=== PATIENT | male | born 1960 | race Caucasian/White ===

== ENCOUNTER 2024-11-06 07:42 | Emergency (ER) | payer MEDICARE ==
[2024-11-06 09:53] LABS: APPEARANCE,URINE CLEAR (CLEAR); BILIRUBIN,URINE NEGATIVE (NEGATIVE); COLOR,URINE YELLOW; GLUCOSE,URINE NEGATIVE (NEGATIVE); KETONES,URINE NEGATIVE (NEGATIVE); LEUKOCYTE ESTERASE,URINE NEGATIVE (NEGATIVE); NITRITE,URINE NEGATIVE (NEGATIVE); OCCULT BLOOD,URINE SMALL (NEGATIVE); PROTEIN,URINE NEGATIVE (NEGATIVE); UROBILINOGEN,URINE 0.2 E.U./dL (0.2-1.0)
[2024-11-06 09:58] LABS: BACTERIA,URINE RARE /HPF; RBC,URINE 20-30 /HPF; WBC,URINE 0-5 /HPF
[2024-11-06 10:27] VITALS: BP 145/76; PULSE 89
== END 2024-11-06 10:25 | disposition home or self-care (01) ==
LOC: LB.ED 07:42
DX: N40.1 Benign prostatic hyperplasia with lower urinary tract symptoms (principal); R31.29 Other microscopic hematuria; I10 Essential (primary) hypertension; E78.00 Pure hypercholesterolemia, unspecified; Z79.899 Other long term (current) drug therapy
CPT/HCPCS: 51701; 51798; 81001; 99283-25; C1758

== ENCOUNTER 2024-11-06 19:48 | Emergency (ER) | payer MEDICARE ==
[2024-11-06 21:10] LABS: BASOPHILS ABSOLUTE AUTO 0.02 K/uL (0.02-0.10); BASOPHILS PERCENT AUTO 0.3 % (0.0-0.5); EOSINOPHILS ABSOLUTE AUTO 0.05 K/uL (0.04-0.40); EOSINOPHILS PERCENT AUTO 0.6 % (1.0-5.0); HEMATOCRIT 39.2 % (40.0-54.0); HEMOGLOBIN 13.4 g/dL (13.0-18.0); LYMPHOCYTES ABSOLUTE AUTO 0.94 K/uL (1.50-4.00); LYMPHOCYTES PERCENT AUTO 11.8 % (20.0-40.0); MEAN CORPUSCULAR HEMOGLOBIN 30.5 pg (27.0-32.0); MEAN CORPUSCULAR HGB CONC 34.2 g/dL (31.0-35.0); MEAN CORPUSCULAR VOLUME 89 fL (76-96); MEAN PLATELET VOLUME 8.9 fL (6.0-10.0); MONOCYTES ABSOLUTE AUTO 0.68 K/uL (0.20-0.80); MONOCYTES PERCENT AUTO 8.5 % (3.0-10.0); NEUTROPHILS ABSOLUTE AUTO 6.27 K/uL (2.00-7.50); NEUTROPHILS PERCENT AUTO 78.8 % (45.0-70.0); PLATELET COUNT,PLT 196 K/uL (150-400); RED BLOOD CELL COUNT 4.39 M/uL (4.50-6.50); RED CELL DISTRIBUTION WIDTH 12.9 % (11.0-16.0)
[2024-11-06 21:15] LABS: APPEARANCE,URINE SLIGHTLY CLOUDY (CLEAR); BILIRUBIN,URINE NEGATIVE (NEGATIVE); COLOR,URINE YELLOW; GLUCOSE,URINE NEGATIVE (NEGATIVE); KETONES,URINE TRACE mg/dL (NEGATIVE); LEUKOCYTE ESTERASE,URINE NEGATIVE (NEGATIVE); NITRITE,URINE NEGATIVE (NEGATIVE); OCCULT BLOOD,URINE LARGE (NEGATIVE); PH,URINE 5.5 (5.0-8.0); PROTEIN,URINE NEGATIVE (NEGATIVE); UROBILINOGEN,URINE 0.2 E.U./dL (0.2-1.0)
[2024-11-06 21:20] LABS: RBC,URINE 40-50 /HPF; SQUAMOUS EPITHELIAL CELLS,UR OCCASIONAL /HPF; WBC,URINE NOT SEEN /HPF
[2024-11-06 21:21] LABS: ANION GAP 9.9 mmol/L (5.0-15.0); BUN/CREATININE RATIO 17.3 (6-25); CALCIUM 8.7 mg/dL (8.5-10.1); CREATININE 0.98 mg/dL (0.70-1.30); EST CRCL DRUG DOSING (CG) 76.56 mL/min; POTASSIUM,K 3.9 mmol/L (3.5-5.1)
[2024-11-06 21:42] VITALS: BP 119/70; PULSE 85
== END 2024-11-06 21:50 | disposition home or self-care (01) ==
LOC: LB.ED 19:48
DX: N40.1 Benign prostatic hyperplasia with lower urinary tract symptoms (principal); R33.8 Other retention of urine
CPT/HCPCS: 36415; 51701; 51702; 51798; 80048; 81001; 85025; 99283; 99283-25; C1758